=== PATIENT | female | born 1970 | race Caucasian/White ===

== ENCOUNTER 2020-12-05 23:58 | Emergency (ER) | payer SELFPAY ==
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
[2020-12-06 00:06] VITALS: BP 188/110; PULSE 66; RESP 20; TEMP 36.6; O2SAT 99
[2020-12-06] MEDS: IBUPROFEN 600 MG TABLET PO (00:20)
[2020-12-06] MEDS: TETANUS,DIPHTHERIA,AC PERTUSSIS ADULT (0.5 ML) BOOSTRIX IM (00:21)
[2020-12-06 00:50] VITALS: BP 153/90; PULSE 51; RESP 20; O2SAT 95
== END 2020-12-06 00:54 | disposition home or self-care (01) ==
PROVIDERS: Emergency Provider Emergency Medicine
DX: S51.851A Open bite of right forearm, initial encounter (principal); I10 Essential (primary) hypertension; W50.3XXA Accidental bite by another person, initial encounter
CPT/HCPCS: 73090; 90471; 90715; 99283; A9270